=== PATIENT | male | born 1935 | race Caucasian/White ===

== ENCOUNTER 2020-08-18 08:33 | Emergency (ER) | payer MEDICARE, OTHER ==
[~2020-08-18] VITALS: Ht 180.3 cm; Wt 82.0 kg
[~2020-08-18 08:33] MED LIST: ASPIRIN81 MG PO; DULERA1 AE1 IN; FIBER0.52 GM PO; FISH OIL1000 MG PO; L-LYSINE500 M2 PO; LORATADINE10 M1 PO; MULIT-VITAMI PO; NIACIN SR500 MG PO; SPIRIVA IN; ZOCOR20 M1 PO
[2020-08-18] MEDS ORDERED: JARDIANCE10 MG PO (09:51)
[2020-08-18 10:28] VITALS: BP 128/79
== END 2020-08-18 10:28 | disposition home or self-care (01) ==
LOC: ED 08:33
DX: B35.6 Tinea cruris (principal); E11.9 Type 2 diabetes mellitus without complications; E78.00 Pure hypercholesterolemia, unspecified

== ENCOUNTER 2021-06-12 02:47 | Emergency (ER) | payer MEDICARE, OTHER ==
[~2021-06-12] VITALS: Ht 180.3 cm; Wt 92.0 kg
[~2021-06-12 02:47] MED LIST changes: +JARDIANCE10 MG PO
[2021-06-12 03:51] LABS: HEMATOCRIT 39.2 % (39.0-50.0); HEMOGLOBIN 13.2 g/dl (14.0-18.0); IMMATURE GRANULOCYTES 0.2 % (0.0-5.0); MEAN CELL VOLUME 94.7 fL CALC (80.0-100.0); MEAN CORPUSCULAR HGB 31.9 pG CALC (26.0-32.0); MEAN CORPUSCULAR HGB CONC 33.7 g/dL CAL (32.0-36.0); NEUT# 5.93 thou/uL (1.82-7.42); RED BLOOD COUNT 4.14 mill/uL (4.70-6.10); RED CELL DISTRI WIDTH 13.8 % (11.5-15.5)
[2021-06-12 04:12] LABS: ALKALINE PHOSPHATASE 202 u/l (38-126); ANION GAP 13 (6-22 (CALC)); BILIRUBIN, TOTAL 0.5 mg/dL (0.0-1.4); BUN 14 mg/dL (8-23); BUN/CREATININE RATIO 19 (12-20 (CALC)); CARBON DIOXIDE 26 mmol/l (22-30); CHLORIDE 103 mmol/l (95-108); CREATININE 0.8 mg/dL (0.7-1.3); GFR > 60 ML/MIN (>=60 (CALC)); GFR FOR AFR.AMER. > 60 ML/MIN (>=60 (CALC)); MAGNESIUM 2.3 mg/dL (1.6-2.3); POTASSIUM 4.9 mmol/l (3.5-5.1); SGOT/AST 33 u/l (19-48); SODIUM 138 mmol/l (137-146); TOTAL PROTEIN 7.1 g/dL (6.3-8.2)
[2021-06-12 05:15] VITALS: BP 161/65
== END 2021-06-12 05:25 | disposition home or self-care (01) ==
LOC: ED 02:47
PROVIDERS: Emergency Medicine
DX: K59.00 Constipation, unspecified (principal); E78.00 Pure hypercholesterolemia, unspecified

== ENCOUNTER 2022-03-15 09:02 | Emergency (ER) | payer MEDICARE, OTHER ==
[~2022-03-15] VITALS: Ht 180.3 cm; Wt 95.0 kg
[2022-03-15 09:10] VITALS: BP 171/89
[2022-03-15 09:31] VITALS: BP 137/74
[2022-03-15 10:00] VITALS: BP 145/79
[2022-03-15] MEDS ORDERED: PREDNISONE10 MG PO ×3 (10:08→12:56)
[2022-03-15] MEDS ORDERED: FLEXERIL5 M1 PO ×3 (10:08→12:56)
[2022-03-15 10:27] VITALS: BP 145/79
== END 2022-03-15 10:41 | disposition home or self-care (01) ==
LOC: ED 09:02
DX: M54.50 Low back pain, unspecified (principal); E78.70 Disorder of bile acid and cholesterol metabolism, unspecified